=== PATIENT | female | born 1945 | race Hispanic/Latino ===

== ENCOUNTER 2019-02-21 11:47 | Outpatient (CLI) | payer MEDICARE ==
--- NOTE | 2019-02-21 15:08 | Mammography Report ---
BILATERAL DIGITAL SCREENING MAMMOGRAM with CAD : 02/21/19 11:47:00 CLINICAL: Routine screening. COMPARISON:05/14/14 [facility] FINDINGS: The breasts are heterogeneously dense, which may obscure small masses.Bilateral benign calcifications, some of which are arterial. No mass, architectural distortion or suspicious calcifications. IMPRESSION: No mammographic evidence of malignancy. BI-RADS CATEGORY: 2 -- Benign RECOMMENDATION: Routine mammographic screening in one year. COMMENT: Patient follow-up letters are generated by our [employer] application.
== END 2019-02-21 11:48 | disposition home or self-care (01) ==
LOC: SPVWC 11:47
PROVIDERS: ATTEND Internal Medicine
DX: Z12.31 Encounter for screening mammogram for malignant neoplasm of breast (principal)
CPT/HCPCS: 77067

== ENCOUNTER 2021-02-27 08:18 | Outpatient (CLI) | payer MEDICARE ==
--- NOTE | 2021-02-27 10:07 | Mammography Report ---
DIGITAL SCREENING MAMMOGRAM WITH CAD, 02/27/2021 INDICATION: Routine screening mammography. TECHNIQUE: Digital bilateral 2D mammography was obtained in the craniocaudal and mediolateral obliq ue projections. This examination was interpreted with the benefit of Computer-Aided Detection analysi s. COMPARISON: 02/27/2020 FINDINGS: Breast Density: The breasts are heterogeneously dense, which may obscure small masses. There is no evidence of dominant mass, suspicious calcifications or architectural distortion in eithe r breast. IMPRESSION: Follow up recommendation: Routine yearly BI-RADS Category 1: Negative. A "normal" or negative report should not discourage follow up or biopsy of a clinically significant f inding. A written summary of these findings will be mailed to the patient. The patient will be entered into a mammography reporting system which will generate a reminder letter for the patient's next appointmen t at the appropriate interval. The [employer] recommends yearly mammograms starting at age 40 and continuing as l boni as a woman is in good health. Breast MRI is recommended for women with an approximate 20-25% or greater lifetime risk of breast cancer, including women with a strong family history of breast or ova debi cancer or who have been treated for Hodgkin's disease. Signer Name: Clarence Wang MD Signed: 02/27/2021 10:03 AM Workstation Name: [id number]
== END 2021-02-27 08:19 | disposition home or self-care (01) ==
LOC: SPVWC 08:18
PROVIDERS: ATTEND Internal Medicine
DX: Z12.31 Encounter for screening mammogram for malignant neoplasm of breast (principal)
CPT/HCPCS: 77067

== ENCOUNTER 2022-03-03 08:49 | Outpatient (CLI) | payer MEDICARE ==
--- NOTE | 2022-03-04 12:09 | Mammography Report ---
DIGITAL SCREENING MAMMOGRAM WITH CAD, 03/03/2022 CLINICAL INFORMATION / INDICATION: Routine screening mammography. SCREENING MAMMO TECHNIQUE: Digital bilateral 2D mammography was obtained in the craniocaudal and mediolateral obliqu e projections. This examination was interpreted with the benefit of Computer-Aided Detection analysis . COMPARISON: 02/27/2020, 02/27/2021 FINDINGS: Breast Density: The breasts are heterogeneously dense, which may obscure small masses. No dominant mass, suspicious calcifications, or architectural distortion in the right breast. There is a new focal asymmetric density in the 9 to 10:00 position of the left breast in the middle d epth. IMPRESSION: There is a new focal asymmetric density in the 9 to 10:00 position of the left breast. Follow up recommendation: Special View: Spot Compression and possible ultrasound. BI-RADS Category 0: INCOMPLETE. Needs additional imaging evaluation and/or prior mammograms for marcelle rison. A "normal" or negative report should not discourage follow up or biopsy of a clinically significant f inding. A written summary of these findings will be mailed to the patient. The patient will be entered into a mammography reporting system which will generate a reminder letter for the patient's next appointmen t at the appropriate interval. The [employer] recommends yearly mammograms starting at age 40 and continuing as l boni as a woman is in good health. Breast MRI is recommended for women with an approximate 20-25% or greater lifetime risk of breast cancer, including women with a strong family history of breast or ova debi cancer or who have been treated for Hodgkin's disease. Signer Name: Dylan Guillen MD Signed: 03/04/2022 12:03 PM Workstation Name: [id number]
== END 2022-03-03 08:50 | disposition home or self-care (01) ==
LOC: SPVWC 08:49
PROVIDERS: ATTEND Internal Medicine
DX: Z12.31 Encounter for screening mammogram for malignant neoplasm of breast (principal); N64.89 Other specified disorders of breast
CPT/HCPCS: 77067

== ENCOUNTER 2022-03-19 09:32 | Outpatient (CLI) | payer MEDICARE ==
--- NOTE | 2022-03-19 12:37 | Ultrasound Report ---
LEFT DIGITAL DIAGNOSTIC MAMMOGRAM WITH CAD -- 03/19/2022 LEFT LIMITED BREAST ULTRASOUND INDICATION: Patient presents as a callback from screening mammogram for further evaluation of a focal asymmetric density in the left breast. TECHNIQUE: Digital left mammographic imaging was performed. Spot compression views were obtained. Li mited ultrasound was performed. This examination was interpreted with the benefit of Computer-Aided D etection (CAD) analysis. COMPARISON: Prior mammogram 03/03/2022 FINDINGS: Breast Density: The breasts are heterogeneously dense, which may obscure small masses. MAMMOGRAPHIC FINDINGS: The previously described focal asymmetric density in the upper inner quadrant of the left breast, middle depth, is much less conspicuous on additional views, suggesting overlappin g fibroglandular tissue. Targeted ultrasound was performed for confirmation. ULTRASOUND FINDINGS: Targeted ultrasound evaluation was performed of the area of interest. Targeted ultrasound was performed of the upper inner quadrant of the left breast. There is a benign-appearing hyperechoic lesion with adjacent small cyst in the 12:00 position located 6 cm from nipple measuring up to 1.3 x 0.8 x 0.8 cm. This area has the appearance of possible fat necrosis. Additionally, there is a probable prominent fat lobule in the 9:00 position located 5 cm from nipple measuring up to 1.1 x 0.6 x 0.6 cm. IMPRESSION: 1. The previously described density is less conspicuous on additional views, suggesting overlapping f ibroglandular tissue. There are probably benign findings in the upper inner quadrant of the left [address] on ultrasound, one of which likely reflects an area of fat necrosis, and the other likely reflects a prominent fat lobule. Recommend left diagnostic mammogram and left breast ultrasound in 6 months t o ensure stability of these findings. Follow up recommendation: Short term follow up in 6 months. BI-RADS Category 3: PROBABLY BENIGN. Followup in 6 months. A "normal" or negative report should not discourage follow up or biopsy of a clinically significant f inding. A written summary of these findings will be mailed to the patient. The patient will be entered into a mammography reporting system which will generate a reminder letter for the patient's next appointmen t at the appropriate interval. According to the [employer], yearly mammograms are recommended starting at age 40 and continuing as long as a woman is in good health. Breast MRI is recommended for women with an donnie roximately 20-25% or greater lifetime risk of breast cancer, including women with a strong family his tory of breast or ovarian cancer and women who have been treated for Hodgkin's disease. Signer Name: Claudia Solano MD Signed: 03/19/2022 12:32 PM Workstation Name: [id number] (acquired by [employer] in 2014)
== END 2022-03-19 09:33 | disposition home or self-care (01) ==
LOC: MAMMO 09:32
PROVIDERS: ATTEND Internal Medicine
DX: N60.02 Solitary cyst of left breast (principal); R92.8 Other abnormal and inconclusive findings on diagnostic imaging of breast